=== PATIENT | male | born 1985 | race African-American/Black ===

== ENCOUNTER 2021-08-21 01:53 | Emergency (ER) | payer MEDICARE, MEDICAID ==
[~2021-08-21] VITALS: Ht 172.7 cm; Wt 73.0 kg
[2021-08-21 02:17] VITALS: BP 125/86
== END 2021-08-21 05:07 | disposition home or self-care (01) ==
LOC: EDBD 02:15 → ER 02:15
DX: R41.82 Altered mental status, unspecified (principal); M79.646 Pain in unspecified finger(s); F31.9 Bipolar disorder, unspecified; F20.9 Schizophrenia, unspecified
CPT/HCPCS: 99281

== ENCOUNTER 2021-09-09 21:49 | Emergency (ER) | payer MEDICARE, MEDICAID ==
[~2021-09-09] VITALS: Ht 185.4 cm; Wt 73.0 kg
[2021-09-09] MEDS ORDERED: IBUPROFEN 600MG TABLET PO STA (22:34)
[2021-09-09] MEDS ORDERED: METOCLOPRAMIDE HCL 10MG TABLET PO STA (22:34)
[2021-09-09 22:48] VITALS: BP 134/85
[2021-09-09] MEDS ORDERED: NAPR-681 PO (22:54)
== END 2021-09-09 23:27 | disposition home or self-care (01) ==
LOC: ER 21:49
DX: R51.9 Headache, unspecified (principal)
CPT/HCPCS: 82962; 99283; J8597